=== PATIENT | female | born 1945 | race Caucasian/White ===

== ENCOUNTER 2017-02-20 11:48 | Inpatient (IN) | payer OTHER, MEDICAID ==
[~2017-02-20] VITALS: Ht 149.9 cm; Wt 51.7 kg
[2017-02-20 11:55] VITALS: BP_SYST 146
[2017-02-20] MEDS ORDERED: NACL 0.9% 1,000 ML IV ONE (12:22)
[2017-02-20] MEDS ORDERED: ONDANSETRON HCL 4 MG/2 ML VIAL IVP ONE (12:30)
[2017-02-20 12:42] LABS: BASOPHILS # (AUTO) 0.1 K/uL (0.0-0.2); BASOPHILS % (AUTO) 1.1 % (0.0-2.0); EOSINOPHILS % (AUTO) 0.1 % (0.0-4.0); HEMATOCRIT 25.4 % (36-48); HEMOGLOBIN 8.3 g/dL (12.0-16.0); LYMPHOCYTES # (AUTO) 0.4 K/uL (1.0-5.5); LYMPHOCYTES % (AUTO) 4.9 % (20.5-51.5); MEAN CORPUSCULAR HEMOGLOBIN 29 pg (27-31); MEAN CORPUSCULAR HGB CONC 33 % (32-36); MEAN CORPUSCULAR VOLUME 89 fL (79.0-98.0); MONOCYTES # (AUTO) 0.4 K/uL (0.0-1.0); MONOCYTES % (AUTO) 5.1 % (1.7-9.3); NEUTROPHILS # (AUTO) 7.8 K/uL (1.8-7.7); NEUTROPHILS % (AUTO) 88.8 % (40.0-70.0); PLATELET COUNT (AUTO) 147 K/uL (130-430); RED BLOOD CELL COUNT(AUTO) 2.85 MIL/uL (4.2-6.2); RED CELL DISTRIBUTION WIDTH 18.8 % (9.0-15.0); WHITE BLOOD COUNT (AUTO) 8.7 K/uL (4.8-10.8)
[2017-02-20 12:54] LABS: CALCIUM 9.1 mg/dL (8.4-11.0); CREATININE 1.08 mg/dL (0.55-1.30); POTASSIUM 4.3 mmol/L (3.5-5.1)
[2017-02-20 12:58] LABS: ALBUMIN 4.1 g/dL (3.4-4.8); TOTAL BILIRUBIN 2.5 mg/dL (0.0-1.0)
[2017-02-20 14:01] LABS: BILIRUBIN,URINE NEGATIVE (NEGATIVE); BLOOD, URINE 1+ (NEGATIVE); CLARITY/URINE SL HAZY (CLEAR); COLOR,URINE YELLOW (YELLOW); GLUCOSE,URINE NEGATIVE (NEGATIVE); KETONES,URINE 1+ (NEGATIVE); LEUKOCYTE ESTERASE ,URINE 1+ (NEGATIVE); NITRITE, URINE POSITIVE (NEGATIVE); PH,URINE 5.5 (5.0-8.0); PROTEIN URINE NEGATIVE (NEGATIVE); UROBILINOGEN,URINE 0.2 (0.2-1.0)
[2017-02-20 14:10] LABS: BACTERIA,URINE MANY /HPF (None Seen); WBC,URINE 20-50 /HPF (0-3)
[2017-02-20 14:11] LABS: MUCUS,URINE 1+ /LPF (None Seen)
[2017-02-20] MEDS ORDERED: LOSARTAN PO (15:08)
[2017-02-20] MEDS ORDERED: CLON0.5T4 PO (15:08)
[2017-02-20] MEDS ORDERED: ATEN-41 PO (15:08)
[2017-02-20] MEDS ORDERED: GLIM1TAB PO (15:08)
[2017-02-20] MEDS ORDERED: LIP10 PO (15:08)
[2017-02-20] MEDS ORDERED: LINA5TAB2 PO (15:08)
[2017-02-20] MEDS ORDERED: GLU500 PO ×2 (15:08)
[2017-02-20] MEDS ORDERED: LORazepam 2 MG/ML VIAL IVP PRN (15:15)
[2017-02-20] MEDS ORDERED: DOCUSATE SODIUM 100 MG CAPSULE PO PRN (15:15)
[2017-02-20] MEDS ORDERED: MAGNESIUM SULFATE 50 ML IV PRN (15:15)
[2017-02-20] MEDS ORDERED: ONDANSETRON HCL 4 MG/2 ML VIAL IVP PRN (15:15)
[2017-02-20] MEDS ORDERED: ZOLPIDEM TARTRATE 5 MG TABLET PO PRN (15:15)
[2017-02-20] MEDS ORDERED: MORPHINE 2 MG/ML INJ. SYRINGE IVP PRN ×2 (15:15)
[2017-02-20] MEDS ORDERED: POTASSIUM CHLORIDE 20 MEQ TAB.PRT.SR PO PRN (15:15)
[2017-02-20 15:23] VITALS: BP_SYST 111
[2017-02-20] MEDS: NACL 0.9% 1,000 ML IV SCH (16:09)
[2017-02-20] MEDS: cefTRIAXone 1 GM in D5W 50 ML IV SCH (16:10)
[2017-02-20 19:30] VITALS: BP_SYST 117
[2017-02-20] MEDS ORDERED: DEXTROSE 50% JECT 50 ML DISP.SYRIN IVP PRN (19:30)
[2017-02-20] MEDS ORDERED: HEPARIN SODIUM,PORCINE 5000 UNITS/ML VIAL SUBCUT SCH (21:00)
[2017-02-20] MEDS: INSULIN ASPART 100 UNITS/ML, 10 ML VIAL (NovoLOG) SUBCUT PRN (21:07)
[2017-02-20 23:59] VITALS: BP_SYST 118
[2017-02-21 02:12] VITALS: BP_SYST 112
[2017-02-21] MEDS: ACETAMINOPHEN 325 MG TABLET PO PRN ×3 (02:51→19:41)
[2017-02-21] MEDS: NACL 0.9% 1,000 ML IV SCH ×2 (02:58→16:13)
[2017-02-21 07:07] LABS: BASOPHILS % (AUTO) 0.2 % (0.0-2.0); EOSINOPHILS % (AUTO) 0.2 % (0.0-4.0); LYMPHOCYTES # (AUTO) 0.7 K/uL (1.0-5.5); LYMPHOCYTES % (AUTO) 12.9 % (20.5-51.5); MEAN CORPUSCULAR HEMOGLOBIN 30 pg (27-31); MEAN CORPUSCULAR HGB CONC 34 % (32-36); MEAN CORPUSCULAR VOLUME 89 fL (79.0-98.0); MONOCYTES # (AUTO) 0.3 K/uL (0.0-1.0); MONOCYTES % (AUTO) 6.6 % (1.7-9.3); NEUTROPHILS # (AUTO) 4.2 K/uL (1.8-7.7); PLATELET COUNT (AUTO) 115 K/uL (130-430); RED BLOOD CELL COUNT(AUTO) 2.33 MIL/uL (4.2-6.2); RED CELL DISTRIBUTION WIDTH 18.9 % (9.0-15.0); WHITE BLOOD COUNT (AUTO) 5.2 K/uL (4.8-10.8)
[2017-02-21 07:40] LABS: CALCIUM 8.2 mg/dL (8.4-11.0); CREATININE 0.99 mg/dL (0.55-1.30); POTASSIUM 3.6 mmol/L (3.5-5.1)
[2017-02-21 08:08] LABS: HEMATOCRIT 20.7 % (36-48)
[2017-02-21 08:11] VITALS: BP_SYST 104
[2017-02-21 09:04] LABS: INR 1.3 (0.8-1.2); PROTHROMBIN TIME 13.1 SECS (9.5-12.5)
[2017-02-21] MEDS ORDERED: LOSA25TA3 PO (09:30)
[2017-02-21] MEDS: ATORVASTATIN 10 MG TABLET PO SCH (09:32)
[2017-02-21] MEDS: ATENOLOL 25 MG TABLET(TENORMIN) PO SCH (09:32)
[2017-02-21 11:18] LABS: NEUTROPHILS % (AUTO) 80.1 % (40.0-70.0)
[2017-02-21 11:29] VITALS: BP_SYST 131
[2017-02-21] MEDS: metFORMIN HCL 500 MG TABLET PO SCH (11:34)
[2017-02-21] MEDS: INSULIN ASPART 100 UNITS/ML, 10 ML VIAL (NovoLOG) SUBCUT PRN (11:42)
[2017-02-21] MEDS: METOCLOPRAMIDE HCL 10 MG/2 ML VIAL IVP SCH ×2 (14:14→21:12)
[2017-02-21 16:06] LABS: EOSINOPHILS % (AUTO) 0.1 % (0.0-4.0); MONOCYTES # (AUTO) 0.3 K/uL (0.0-1.0); WHITE BLOOD COUNT (AUTO) 4.9 K/uL (4.8-10.8)
[2017-02-21 16:10] VITALS: BP_SYST 115
[2017-02-21 16:11] LABS: BASOPHILS % (AUTO) 0.2 % (0.0-2.0); LYMPHOCYTES # (AUTO) 0.5 K/uL (1.0-5.5); LYMPHOCYTES % (AUTO) 9.6 % (20.5-51.5); MEAN CORPUSCULAR HEMOGLOBIN 30 pg (27-31); MEAN CORPUSCULAR HGB CONC 33 % (32-36); MEAN CORPUSCULAR VOLUME 90 fL (79.0-98.0); MONOCYTES % (AUTO) 6.3 % (1.7-9.3); NEUTROPHILS % (AUTO) 83.8 % (40.0-70.0); RED BLOOD CELL COUNT(AUTO) 2.28 MIL/uL (4.2-6.2); RED CELL DISTRIBUTION WIDTH 18.6 % (9.0-15.0)
[2017-02-21] MEDS: cefTRIAXone 1 GM in D5W 50 ML IV SCH (16:12)
[2017-02-21 16:15] LABS: HEMATOCRIT 20.5 % (36-48); HEMOGLOBIN 6.8 g/dL (12.0-16.0); PLATELET COUNT (AUTO) 121 K/uL (130-430)
[2017-02-21 19:30] VITALS: BP_SYST 131
[2017-02-21 22:07] VITALS: BP_SYST 117
[2017-02-22 00:53] VITALS: BP_SYST 129
[2017-02-22 03:26] LABS: BASOPHILS # (AUTO) 0.1 K/uL (0.0-0.2); EOSINOPHILS % (AUTO) 0.2 % (0.0-4.0); HEMATOCRIT 30.3 % (36-48); HEMOGLOBIN 10.1 g/dL (12.0-16.0); LYMPHOCYTES # (AUTO) 0.7 K/uL (1.0-5.5); LYMPHOCYTES % (AUTO) 9.6 % (20.5-51.5); MEAN CORPUSCULAR HEMOGLOBIN 30 pg (27-31); MEAN CORPUSCULAR HGB CONC 33 % (32-36); MEAN CORPUSCULAR VOLUME 90 fL (79.0-98.0); MONOCYTES # (AUTO) 0.5 K/uL (0.0-1.0); MONOCYTES % (AUTO) 6.5 % (1.7-9.3); NEUTROPHILS # (AUTO) 5.8 K/uL (1.8-7.7); NEUTROPHILS % (AUTO) 81.7 % (40.0-70.0); PLATELET COUNT (AUTO) 116 K/uL (130-430); RED BLOOD CELL COUNT(AUTO) 3.36 MIL/uL (4.2-6.2); RED CELL DISTRIBUTION WIDTH 15.9 % (9.0-15.0); WHITE BLOOD COUNT (AUTO) 7.1 K/uL (4.8-10.8)
[2017-02-22 04:00] VITALS: BP_SYST 141
[2017-02-22] MEDS: METOCLOPRAMIDE HCL 10 MG/2 ML VIAL IVP SCH ×3 (05:38→22:43)
[2017-02-22] MEDS: INSULIN ASPART 100 UNITS/ML, 10 ML VIAL (NovoLOG) SUBCUT PRN ×2 (06:02→12:15)
[2017-02-22 06:37] LABS: BASOPHILS % (AUTO) 0.2 % (0.0-2.0); EOSINOPHILS % (AUTO) 0.3 % (0.0-4.0); HEMATOCRIT 30.1 % (36-48); HEMOGLOBIN 10.2 g/dL (12.0-16.0); LYMPHOCYTES # (AUTO) 0.6 K/uL (1.0-5.5); LYMPHOCYTES % (AUTO) 8.5 % (20.5-51.5); MEAN CORPUSCULAR HEMOGLOBIN 31 pg (27-31); MEAN CORPUSCULAR HGB CONC 34 % (32-36); MEAN CORPUSCULAR VOLUME 91 fL (79.0-98.0); MONOCYTES # (AUTO) 0.4 K/uL (0.0-1.0); MONOCYTES % (AUTO) 5.9 % (1.7-9.3); NEUTROPHILS # (AUTO) 6.2 K/uL (1.8-7.7); NEUTROPHILS % (AUTO) 85.1 % (40.0-70.0); PLATELET COUNT (AUTO) 114 K/uL (130-430); RED BLOOD CELL COUNT(AUTO) 3.33 MIL/uL (4.2-6.2); RED CELL DISTRIBUTION WIDTH 16.4 % (9.0-15.0); WHITE BLOOD COUNT (AUTO) 7.2 K/uL (4.8-10.8)
[2017-02-22 06:57] LABS: CALCIUM 8.4 mg/dL (8.4-11.0); CREATININE 0.84 mg/dL (0.55-1.30); POTASSIUM 3.5 mmol/L (3.5-5.1)
[2017-02-22] MEDS ORDERED: fentaNYL CITRATE/PF 100 MCG/2 ML AMP ONE (07:04)
[2017-02-22] MEDS ORDERED: MIDAZOLAM HCL 5 MG/5 ML VIAL ONE (07:05)
[2017-02-22 09:26] VITALS: BP_SYST 124
[2017-02-22] MEDS: ATORVASTATIN 10 MG TABLET PO SCH (09:43)
[2017-02-22] MEDS: ATENOLOL 25 MG TABLET(TENORMIN) PO SCH (09:44)
[2017-02-22] MEDS: ACETAMINOPHEN 325 MG TABLET PO PRN (09:45)
[2017-02-22] MEDS: PANTOPRAZOLE SODIUM 40 MG TAB PO SCH (09:48)
[2017-02-22] MEDS: NACL 0.9% 1,000 ML IV SCH ×3 (11:13→22:43)
[2017-02-22 12:00] VITALS: BP_SYST 133
[2017-02-22] MEDS ORDERED: GASTROGRAFIN 120 ML ONE (12:44)
[2017-02-22] MEDS: LEVOFLOXACIN 500 MG/D5W 100 ML IV SCH (14:36)
[2017-02-22 16:00] VITALS: BP_SYST 132
[2017-02-22] MEDS: metFORMIN HCL 500 MG TABLET PO SCH (16:43)
[2017-02-22 20:00] VITALS: BP_SYST 159
[2017-02-23 01:07] VITALS: BP_SYST 151
[2017-02-23 04:44] VITALS: BP_SYST 151
[2017-02-23] MEDS: METOCLOPRAMIDE HCL 10 MG/2 ML VIAL IVP SCH (06:19)
[2017-02-23 06:24] LABS: BASOPHILS % (AUTO) 0.4 % (0.0-2.0); EOSINOPHILS # (AUTO) 0.1 K/uL (0.0-0.4); EOSINOPHILS % (AUTO) 1.1 % (0.0-4.0); HEMATOCRIT 30.3 % (36-48); HEMOGLOBIN 10.2 g/dL (12.0-16.0); LYMPHOCYTES # (AUTO) 0.8 K/uL (1.0-5.5); LYMPHOCYTES % (AUTO) 15.8 % (20.5-51.5); MEAN CORPUSCULAR HEMOGLOBIN 31 pg (27-31); MEAN CORPUSCULAR HGB CONC 34 % (32-36); MEAN CORPUSCULAR VOLUME 90 fL (79.0-98.0); MONOCYTES # (AUTO) 0.4 K/uL (0.0-1.0); NEUTROPHILS # (AUTO) 3.5 K/uL (1.8-7.7); NEUTROPHILS % (AUTO) 73.7 % (40.0-70.0); PLATELET COUNT (AUTO) 108 K/uL (130-430); RED BLOOD CELL COUNT(AUTO) 3.35 MIL/uL (4.2-6.2); RED CELL DISTRIBUTION WIDTH 15.8 % (9.0-15.0); WHITE BLOOD COUNT (AUTO) 4.8 K/uL (4.8-10.8)
[2017-02-23 06:36] LABS: CALCIUM 8.6 mg/dL (8.4-11.0); CREATININE 0.84 mg/dL (0.55-1.30); POTASSIUM 3.3 mmol/L (3.5-5.1)
[2017-02-23 08:10] VITALS: BP_SYST 149
[2017-02-23] MEDS: PANTOPRAZOLE SODIUM 40 MG TAB PO SCH (09:16)
[2017-02-23] MEDS: ATENOLOL 25 MG TABLET(TENORMIN) PO SCH (09:16)
[2017-02-23] MEDS: ATORVASTATIN 10 MG TABLET PO SCH (09:16)
[2017-02-23] MEDS ORDERED: PRO40 PO (09:37)
[2017-02-23] MEDS ORDERED: LEVO500T20 PO (09:37)
[2017-02-23] MEDS: LEVOFLOXACIN 500 MG/D5W 100 ML IV SCH (10:02)
[2017-02-23 11:19] VITALS: BP_SYST 149
[2017-02-23] MEDS: metFORMIN HCL 500 MG TABLET PO SCH (11:37)
[2017-02-23 12:22] VITALS: BP_SYST 162
== END 2017-02-23 12:30 | disposition home or self-care (01) | DRG 809 ==
LOC: SED 11:48 → SMU 14:34
PROVIDERS: ADMIT General Practice; ATTEND General Practice
PROC: 30233N1 Transfusion of Nonautologous Red Blood Cells into Peripheral Vein, Percutaneous Approach (ICD-10-PCS; 2017-02-21)
PROC: 0DB68ZX Excision of Stomach, Via Natural or Artificial Opening Endoscopic, Diagnostic (ICD-10-PCS; principal; 2017-02-22 07:30)
DX: D59.1 Other autoimmune hemolytic anemias (principal); N39.0 Urinary tract infection, site not specified; E11.65 Type 2 diabetes mellitus with hyperglycemia; K80.20 Calculus of gallbladder without cholecystitis without obstruction; E78.5 Hyperlipidemia, unspecified; I10 Essential (primary) hypertension; B96.20 Unspecified Escherichia coli [E. coli] as the cause of diseases classified elsewhere; K29.70 Gastritis, unspecified, without bleeding; E78.00 Pure hypercholesterolemia, unspecified
CPT/HCPCS: 36415; 43239; 74245-TC; 76700-TC; 80048; 80053; 81000-TC; 82248-TC; 82962; 83010; 83605; 83615-TC; 83690-TC; 83735-TC; 84484; 85025; 85610-TC; 86886; 86900; 86901; 86920; 87040-TC; 87081; 87086; 87186-TC; 88305; 88312; 88313; 93005; 96361; 96374; 99285; J0696; J1644; J1815; J1956; J2060; J2250; J2405; J2765; J3010; J7030; J7040; J7060; P9021; Q9963

== ENCOUNTER 2017-11-26 06:41 | Inpatient (IN) | payer OTHER, MEDICAID ==
[~2017-11-26] VITALS: Ht 149.9 cm; Wt 51.7 kg
[~2017-11-26 06:41] MED LIST: ATEN-41 PO; CLON0.5T4 PO; GLIM1TAB PO; GLU500 PO; LEVO500T20 PO; LINA5TAB2 PO; LIP10 PO; LOSA25TA3 PO; PRO40 PO
[2017-11-26 06:52] VITALS: BP_SYST 133
[2017-11-26] MEDS ORDERED: NS 1000 ML IV.SOLN IV ONE (07:00)
--- NOTE | 2017-11-26 07:01 | NUR ---
Patient to ER bed 8 to gown for evaluation. Side rails up.
--- NOTE | 2017-11-26 07:20 | NUR ---
Pt presents to ER c/o dizziness, nausea, and general weakness that began Thursday afternoon. Pt reports that her 3rd [address]man Dr. Hudson Elaine recommended her to come in to have her Hemoglobin checked. Pt reports having a blood transfusion here at [facility] last February. Pt denies any pain, denies chest pain or sob. Pt AOX4, respirations even and unlabored, no signs of acute distress, speaking full sentences, ambulatory.
[2017-11-26] MEDS ORDERED: OMEG1CAP55 PO (07:24)
[2017-11-26] MEDS ORDERED: FOLI-43 PO (07:24)
[2017-11-26] MEDS ORDERED: FOLI400T4 PO (07:24)
--- NOTE | 2017-11-26 07:25 | NUR ---
Medication reconciliation completed with information provided by pt. Any prior medication reconciliation on file was reviewed and corrected.
[2017-11-26 07:27] LABS: BASOPHILS # (AUTO) 0.1 K/uL (0.0-0.2); BASOPHILS % (AUTO) 0.6 % (0.0-2.0); EOSINOPHILS % (AUTO) 0.4 % (0.0-4.0); HEMATOCRIT 24.9 % (36-48); HEMOGLOBIN 8.4 g/dL (12.0-16.0); LYMPHOCYTES # (AUTO) 0.9 K/uL (1.0-5.5); LYMPHOCYTES % (AUTO) 10.4 % (20.5-51.5); MEAN CORPUSCULAR HEMOGLOBIN 30 pg (27-31); MEAN CORPUSCULAR HGB CONC 34 % (32-36); MEAN CORPUSCULAR VOLUME 89 fL (79.0-98.0); MONOCYTES # (AUTO) 0.9 K/uL (0.0-1.0); MONOCYTES % (AUTO) 9.5 % (1.7-9.3); NEUTROPHILS # (AUTO) 7.1 K/uL (1.8-7.7); NEUTROPHILS % (AUTO) 79.1 % (40.0-70.0); PLATELET COUNT (AUTO) 161 K/uL (130-430); RED BLOOD CELL COUNT(AUTO) 2.81 MIL/uL (4.2-6.2); RED CELL DISTRIBUTION WIDTH 17.5 % (9.0-15.0)
--- NOTE | 2017-11-26 07:40 | NUR ---
ER at bedside examining patient.
[2017-11-26 07:43] LABS: INR 1.1 (0.8-1.2); PROTHROMBIN TIME 11.1 SECS (9.5-12.5)
[2017-11-26 07:50] LABS: CALCIUM 8.4 mg/dL (8.4-11.0); CREATININE 1.33 mg/dL (0.55-1.30); POTASSIUM 4.1 mmol/L (3.5-5.1)
[2017-11-26 07:53] LABS: ALBUMIN 3.8 g/dL (3.4-4.8); TOTAL BILIRUBIN 1.8 mg/dL (0.0-1.0)
[2017-11-26 08:28] LABS: BILIRUBIN,URINE NEGATIVE (NEGATIVE); CLARITY/URINE HAZY (CLEAR); COLOR,URINE YELLOW (YELLOW); GLUCOSE,URINE NEGATIVE (NEGATIVE); KETONES,URINE NEGATIVE (NEGATIVE); LEUKOCYTE ESTERASE ,URINE 2+ (NEGATIVE); NITRITE, URINE POSITIVE (NEGATIVE); PROTEIN URINE NEGATIVE (NEGATIVE); UROBILINOGEN,URINE 0.2 (0.2-1.0)
[2017-11-26 08:32] LABS: BLOOD, URINE TRACE (NEGATIVE)
[2017-11-26] MEDS ORDERED: cefTRIAXone 1 GM IVPB PREMIX 50 ML IV ONE (08:45)
--- NOTE | 2017-11-26 08:45 | NUR ---
Dr. Fuentes at bedside speaking with pt discussing lab and diagnostic results.
[2017-11-26 08:59] LABS: BACTERIA,URINE MODERATE /HPF (None Seen); WBC,URINE 20-50 /HPF (0-3)
[2017-11-26 09:00] LABS: MUCUS,URINE None Seen /LPF (None Seen); YEAST,URINE None Seen /HPF (None Seen)
[2017-11-26] MEDS ORDERED: ONDANSETRON HCL 4 MG/2 ML VIAL IVP PRN (09:00)
[2017-11-26] MEDS ORDERED: TEMAZEPAM 15 MG CAPSULE PO PRN (09:00)
[2017-11-26] MEDS ORDERED: METOCLOPRAMIDE HCL 10 MG/2 ML VIAL IVP PRN (09:00)
--- NOTE | 2017-11-26 09:10 | NUR ---
Patient will be admitted to care of Dr. Hastings. Admitted to medsurg unit. Will go to room 134. Belongings list completed. Summary report printed. Report will be given at bedside.
--- NOTE | 2017-11-26 09:28 | NUR ---
ADMISSION: The patient, JOSE MANUEL LIU, 72 y/o, F admitted by BARBIE NASH MD, was given written information regarding hospital policies, unit procedures and contact persons.
[2017-11-26 09:32] VITALS: BP_SYST 128
--- NOTE | 2017-11-26 10:35 | NUR ---
Opening Note patient resting in bed, awake and alert, no complaints of pain, breathing unlabored on room air, IV bolus finished, site patent, patient ambulated to restroom with steady gait, educated patient on use of call light, verbalized understanding, call light and bedside table left within reach, will continue to monitor
--- NOTE | 2017-11-26 11:30 | NUR ---
ATTENDING MD DR NASH WAS PAGED, RE: DIET ORDER. SPOKE TO ERIKA.
[2017-11-26 12:35] VITALS: BP_SYST 117
--- NOTE | 2017-11-26 12:50 | NUR ---
Patient Resting in Bed visitors at bedside, no complaints of pain, breathing unlabored on room air, IV site saline locked, she received meal tray, no other needs at this time, educated patient on use of call light for assistance, verbalized understanding, call light and bedside table left within reach, will continue to monitor
[2017-11-26 12:55] VITALS: BP_SYST 118
--- NOTE | 2017-11-26 13:10 | NUR ---
Spoke with Dr. Elaine over the phone, updated him with patient's status over the phone, stated will make rounds later today
--- NOTE | 2017-11-26 13:16 | NUR ---
CONSULTATION PAGED/CALLED Reason for Consultation: [] ANEMIA Person Who was Notified: [] CHITRA Consulting Physician: [] DR Orly MCALLISTER Mold Preparer Specialty: [] ONCO/HEMATOLOGY Ordering Physician: [] DR Osmin NASH
--- NOTE | 2017-11-26 13:49 | NUR ---
Patient off Unit at this time for head CT, visitors remain at bedside, will check on patient when she gets back
--- NOTE | 2017-11-26 14:40 | NUR ---
Patient Resting in Bed at this time, eyes closed, breathing unlabored on room air, IV site saline locked, no complaints of pain at this time, safety precautions remain in place, call light and bedside table left within reach, will continue to monitor
--- NOTE | 2017-11-26 16:30 | NUR ---
Patient Resting in Bed awake and alert, no complaints of dizziness or pain at this time, breathing unlabored and symmetrical on room air, IV site saline locked, educated patient on use of call light for assistance, verbalized understanding, bedside table and call light left within reach, will continue to monitor
[2017-11-26 16:50] VITALS: BP_SYST 123
--- NOTE | 2017-11-26 18:40 | NUR ---
Closing Note patient sitting on chair on side of bed, eating dinner with visitor, no complaints of pain, breathing unlabored on room air, IV site saline locked, no complaints of dizziness, safety precautions remain in place, bedside table and call light left within reach, will endorse to shift production associate nurse
--- NOTE | 2017-11-26 19:20 | NUR ---
OPENING NOTE Patient resting on the bed. No acute distress. Respiration even and unlabored. AAO x 4. Denied of pain. Skin warm and dry to touch. SL intact to RFA, no redness, no swelling, patent. Family at bedside. Discussed the safety issue, use call light when need help, and plan of care, verbally understanding. Safety measure maintained. Bed locked in low position, side rails up, bed alarm on. Call light within reached. Will continue to monitor.
[2017-11-26 19:45] VITALS: BP_SYST 127
--- NOTE | 2017-11-26 20:40 | NUR ---
EARPLUG PROVIDED PER PATIENT REQUESTED
--- NOTE | 2017-11-26 22:30 | NUR ---
ROUND Patient resting on the bed with eyes closed. No acute distress. Safety measure maintained. Bed locked in low position, side rails up, bed alarm on. Call light within reached. Continue to monitor.
--- NOTE | 2017-11-27 00:08 | NUR ---
ROUND Patient resting on the bed with eyes closed. No acute distress. Respiration even and unlabored. Safety measure maintained. Bed locked in low position, side rails up, bed alarm on. Call light within reached. Continue to monitor.
--- NOTE | 2017-11-27 00:15 | NUR ---
ROUND Patient resting on the bed with eyes closed. No acute distress. Safety measure maintained. Call light within reached. Bed locked in low position, side rails up, bed alarm on. Continue to monitor.
[2017-11-27 00:21] VITALS: BP_SYST 121
--- NOTE | 2017-11-27 03:56 | NUR ---
ROUND Patient resting on the bed with eyes closed. No acute distress. Respiration even and unlabored. Safety measure maintained. Call light within reached. Bed locked in low position, side rails up, bed alarm on. Continue to monitor.
--- NOTE | 2017-11-27 05:00 | NUR ---
PERSONAL HYGIENE Patient prefers to do personal hygiene self, able to do independent.
--- NOTE | 2017-11-27 06:50 | NUR ---
CLOSING NOTE Patient resting on the bed. No acute distress. Respiration even and unlabored. Denied of pain. Skin warm and dry to touch. SL intact to RFA, no redness, no swelling, patent. All needs met. Safety measure maintained. Bed locked in low position, side rails up, bed alarm on. Call light within reached. Will endorse to morning shift nurse.
--- NOTE | 2017-11-27 07:30 | NUR ---
Initial Note Received report from the night nurse ABEL. Pt AOX4. No sign of distress noted at this time. Bed is at lowest position with bed alarm on. Call light within reach
[2017-11-27 07:46] LABS: TOTAL IRON BIND. CAPACITY 159 ug/dL (250-450)
[2017-11-27 07:50] VITALS: BP_SYST 135
[2017-11-27 07:59] LABS: THYROID STIMULATING HORMONE 0.49 uIu/mL (0.36-3.74)
--- NOTE | 2017-11-27 08:04 | NUR ---
PAGED PAGED MEETA ELIAS AT [phone] SPOKE WITH MILI.
--- NOTE | 2017-11-27 09:35 | NUR ---
RN Rounds Pt awake and does not show any sign of distress noted at this time. Bed is at lowest position with bed alarm on. Call light within reach
[2017-11-27] MEDS ORDERED: DEXTROSE 50% JECT 50 ML DISP.SYRIN IVP PRN (10:45)
[2017-11-27] MEDS ORDERED: ATENOLOL 25 MG TABLET(TENORMIN) PO ONE (10:45)
[2017-11-27] MEDS: INSULIN REGULAR, HUMAN 100 UNITS/ML, 10 ML VIAL (novoLIN R) SUBCUT PRN ×2 (11:23→17:17)
[2017-11-27] MEDS ORDERED: ATENOLOL 25 MG TABLET(TENORMIN) ONE (11:34)
[2017-11-27 12:00] VITALS: BP_SYST 127
--- NOTE | 2017-11-27 12:35 | NUR ---
RN Rounds Pt resting and does not show any sign of distress noted at this time. Bed is at lowest position with bed alarm on. Call light within reach
[2017-11-27 16:00] VITALS: BP_SYST 128
--- NOTE | 2017-11-27 16:15 | NUR ---
RN Rounds Pt resting and does not show any sign of distress at this time. Bed is at lowest position with bed alarm on. Call light within reach.
--- NOTE | 2017-11-27 18:10 | NUR ---
Closing Note Pt AOX4. No sign of distress noted at this time. Bed is at lowest position with bed alarm on. Call light within reach. Pt is not happy. As per the pt, Dr. Ferrer did not have enough time to answer all her questions. She is now waiting on Dr. Emery to answer all her questions.
[2017-11-27 19:00] VITALS: BP_SYST 151
--- NOTE | 2017-11-27 19:10 | NUR ---
change of shift.pt.presents general status stable.respiratory status stable@room air. no c/o pain/nausea.pt.is ambulatory.iv access;lock.call light/telephone placed w/in the pt's reach.
--- NOTE | 2017-11-27 19:55 | NUR ---
pt.assessed.v's assessed.values w/in normal limits.no c/o pain,nausea.i have apprised pt.that snacks are available w/in the shift.no requests@this hour.general status stable.respiratory status stable. call light/telephone w/in the pt's reach.
[2017-11-27 20:00] VITALS: BP_SYST 151
--- NOTE | 2017-11-27 20:15 | NUR ---
noted that is w/ the pt.@this hour.
--- NOTE | 2017-11-27 20:35 | NUR ---
is w/ the pt.
[2017-11-27] MEDS: ATORVASTATIN 10 MG TABLET PO SCH (21:00)
--- NOTE | 2017-11-27 21:00 | NUR ---
2100p medication;lipitor has been administered.pt.has requested a snack;milk,nathalie crackers.i have provided the snacks.
--- NOTE | 2017-11-27 21:45 | NUR ---
pt.'s dtr is present.dtr. has inquired of the pt's lab values;hbg/creatinine.i have apprised the dtr that had assessed the pt.w/in the last hour.dtr had inquired if labs are ordered for 11/28/17.i have apprised the dtr that i have reviewed the 24hrs orders:and recalled no labs for:11/29/27.i reviewed the order hx; x2 no labs were order and i apprised the dtr.dtr requested if labs;cbc/cmp could be ordered:11/28/17. has been paged;re;orders;labs per the pt's dtr.
--- NOTE | 2017-11-27 21:45 | NUR ---
PAGE CALLED FOR DR. NASH. SPOKE TO ROBERTO, DIALED [phone].
[2017-11-27] MEDS: clonazePAM 0.5 MG TABLET PO PRN (22:16)
--- NOTE | 2017-11-27 22:16 | NUR ---
has been paged 2nd attempt.i have apprised the dtr.of the 2nd attempt to reach re; possible lab orders:11/28/17.
--- NOTE | 2017-11-27 22:16 | NUR ---
2ND PAGE CALLED FOR DR. NASH. SPOKE TO DR. NASH, DIALED [phone].
--- NOTE | 2017-11-27 22:20 | NUR ---
pt.had requested klonipin:0.5mg po.i have administered the medication.
--- NOTE | 2017-11-27 22:30 | NUR ---
return the page.i apprised of the pt's dtr requests for labs;. i apprised that has been present and assessed the pt.@approximately: 1999p-2029p.but did not order labs.; did not provide orders.i apprised th pt's dtr. that did not provide lab orders:11/28/17.
--- NOTE | 2017-11-28 00:30 | NUR ---
pt.assessed.v/s assessed;value w/in normal limits.i have assessed the blood glucose;value;190mg/dl. no c/o pain,nausea.no requests for snacks.call light/telephone w/in the pt's reach.
[2017-11-28] MEDS: INSULIN REGULAR, HUMAN 100 UNITS/ML, 10 ML VIAL (novoLIN R) SUBCUT PRN ×2 (00:33→12:26)
--- NOTE | 2017-11-28 00:35 | NUR ---
i have administered 2-units;regular insulin pr the sliding scale parameters. no further requests@this hour.
[2017-11-28 01:00] VITALS: BP_SYST 122
--- NOTE | 2017-11-28 01:53 | NUR ---
pt.assessed.pt.presents quiescent affect;calm,somnolent.general status stable.respiratory status stable. pt.capable to reposition self.call,light/telephone w/in the pt. reach.
--- NOTE | 2017-11-28 04:22 | NUR ---
pt.assessed.pt.presents quiescent affect;calm,somnolent.general status stable.respiratory status stable. pt.capable to reposition self.call light/telephone w/in the pt's reach.
--- NOTE | 2017-11-28 06:25 | NUR ---
pt.assessed.i have assessed the blood glucose.value;118mg/dl.pt.had requested towels/gown to shower i have provided the items.no requests for pain,nausea,nor snacks.call light/telephone w/in the pt's reach.
[2017-11-28 08:00] VITALS: BP_SYST 133
--- NOTE | 2017-11-28 08:00 | NUR ---
PATIENT A/OX4, NO SIGNS OF APPARENT DISTRESS NOTED. IV ON THE RIGHT FA, #20, SL. POC IS EXPLAINED. CALL LIGHT IN PLACE, BED LOCKED AT THE LOWEST POSITION, WILL CONTINUE TO MONITOR.
[2017-11-28] MEDS: FOLIC ACID 1 MG TABLET PO SCH (09:06)
[2017-11-28] MEDS: LOSARTAN POTASSIUM 25 MG TABLET PO SCH (09:07)
[2017-11-28] MEDS: ATENOLOL 25 MG TABLET(TENORMIN) PO SCH (09:08)
--- NOTE | 2017-11-28 10:15 | NUR ---
Dr. Redd is called as no CBC and BMP is ordered. He was able to be reached, and new orders were given.
[2017-11-28 10:51] LABS: CALCIUM 8.7 mg/dL (8.4-11.0); CREATININE 0.94 mg/dL (0.55-1.30); POTASSIUM 4.1 mmol/L (3.5-5.1)
[2017-11-28 11:03] LABS: BASOPHILS % (AUTO) 0.5 % (0.0-2.0); EOSINOPHILS # (AUTO) 0.1 K/uL (0.0-0.4); EOSINOPHILS % (AUTO) 1.3 % (0.0-4.0); HEMATOCRIT 22.6 % (36-48); HEMOGLOBIN 7.7 g/dL (12.0-16.0); LYMPHOCYTES % (AUTO) 19.7 % (20.5-51.5); MEAN CORPUSCULAR HEMOGLOBIN 30 pg (27-31); MEAN CORPUSCULAR HGB CONC 34 % (32-36); MEAN CORPUSCULAR VOLUME 88 fL (79.0-98.0); MONOCYTES # (AUTO) 0.4 K/uL (0.0-1.0); NEUTROPHILS # (AUTO) 3.6 K/uL (1.8-7.7); NEUTROPHILS % (AUTO) 71.5 % (40.0-70.0); PLATELET COUNT (AUTO) 157 K/uL (130-430); RED BLOOD CELL COUNT(AUTO) 2.56 MIL/uL (4.2-6.2); WHITE BLOOD COUNT (AUTO) 5.1 K/uL (4.8-10.8)
--- NOTE | 2017-11-28 11:39 | NUR ---
blood sugar 208. insulin will be given per sliding scale
[2017-11-28 12:00] VITALS: BP_SYST 122
[2017-11-28 12:07] LABS: FOLATE (FOLIC ACID) >20.0 ng/mL (>3.0)
[2017-11-28] MEDS: GLIMEPIRIDE 2 MG TABLET PO SCH (12:25)
[2017-11-28] MEDS ORDERED: LEVOFLOXACIN 500 MG TABLET PO ONE (13:45)
[2017-11-28] MEDS ORDERED: cefTRIAXone 1 GM in D5W 50 ML IV ONE (14:00)
--- NOTE | 2017-11-28 14:10 | NUR ---
patient is seen ambulating in the room.
[2017-11-28 16:00] VITALS: BP_SYST 129
--- NOTE | 2017-11-28 16:20 | NUR ---
Family at bedside. POC is explained, no signs of distress noted.
--- NOTE | 2017-11-28 17:30 | NUR ---
Patient blood sugar 71. No coverage needed; patient is encouraged to eat dinner to prevent blood sugar from falling further
--- NOTE | 2017-11-28 18:20 | NUR ---
Patient finishes dinner without distress.
[2017-11-28 20:45] VITALS: BP_SYST 132
--- NOTE | 2017-11-28 20:45 | NUR ---
Patient awake alert sitting up in bed able to self Reposition & Turn , is ambulatory on room air 02 SAT 98 % chest movement stable also symmetrical unlabored .
[2017-11-28] MEDS: clonazePAM 0.5 MG TABLET PO PRN (21:25)
[2017-11-28] MEDS: ATORVASTATIN 10 MG TABLET PO SCH (21:25)
--- NOTE | 2017-11-28 21:50 | NUR ---
KLONOPIN 0.5 MG PO ADMINISTER PER PATIENT REQUEST FOR GENERAL ANXIETY comfort measures implemented / .
[2017-11-28 23:55] LABS: FERRITIN 514 ng/mL (15-150)
[2017-11-29 01:10] VITALS: BP_SYST 114
--- NOTE | 2017-11-29 02:26 | NUR ---
Hourly Rounding patient resting call tafoya with patient , bed to low position Respirations regular also unlabored safety measures implemented .
--- NOTE | 2017-11-29 04:50 | NUR ---
PATIENT AWAKE ALERT VERBALLY RESPONSIVE , SIPPING ON JUICE PO , NO S/SX OF LOW BLOOD SUGAR ABLE TO SELF POSITION , BED TO LOW POSITION .
[2017-11-29 06:51] LABS: BASOPHILS # (AUTO) 0.1 K/uL (0.0-0.2); BASOPHILS % (AUTO) 1.5 % (0.0-2.0); EOSINOPHILS # (AUTO) 0.1 K/uL (0.0-0.4); EOSINOPHILS % (AUTO) 1.4 % (0.0-4.0); HEMATOCRIT 22.7 % (36-48); HEMOGLOBIN 7.7 g/dL (12.0-16.0); LYMPHOCYTES # (AUTO) 0.9 K/uL (1.0-5.5); LYMPHOCYTES % (AUTO) 21.7 % (20.5-51.5); MEAN CORPUSCULAR HEMOGLOBIN 30 pg (27-31); MEAN CORPUSCULAR HGB CONC 34 % (32-36); MEAN CORPUSCULAR VOLUME 88 fL (79.0-98.0); MONOCYTES # (AUTO) 0.3 K/uL (0.0-1.0); MONOCYTES % (AUTO) 7.2 % (1.7-9.3); NEUTROPHILS # (AUTO) 2.9 K/uL (1.8-7.7); NEUTROPHILS % (AUTO) 68.2 % (40.0-70.0); PLATELET COUNT (AUTO) 160 K/uL (130-430); RED BLOOD CELL COUNT(AUTO) 2.59 MIL/uL (4.2-6.2); WHITE BLOOD COUNT (AUTO) 4.3 K/uL (4.8-10.8)
[2017-11-29 07:12] LABS: CALCIUM 8.9 mg/dL (8.4-11.0); CREATININE 1.01 mg/dL (0.55-1.30); POTASSIUM 4.2 mmol/L (3.5-5.1)
[2017-11-29 07:19] LABS: ALBUMIN 3.4 g/dL (3.4-4.8); TOTAL BILIRUBIN 1.1 mg/dL (0.0-1.0)
[2017-11-29 08:00] VITALS: BP_SYST 125
--- NOTE | 2017-11-29 08:00 | NUR ---
Opening Note received report from industrial education teacher RN, pt resting in bed, A&Ox4, respirations even and unlabored on room air, pt denies any pain or shortness of breath, IV site clean, dry, and intact, pt educated on use of call light and asked to call for assistance, pt verbalized understanding, call light in reach, bed in low position, bed alarm on, fall and aspiration precautions in place.
[2017-11-29] MEDS: ATENOLOL 25 MG TABLET(TENORMIN) PO SCH (08:59)
[2017-11-29] MEDS: LOSARTAN POTASSIUM 25 MG TABLET PO SCH (08:59)
[2017-11-29] MEDS: FOLIC ACID 1 MG TABLET PO SCH (08:59)
--- NOTE | 2017-11-29 09:02 | NUR ---
Medication/Called Pharmacy pt educated on all medication uses and side effects, pt verbalized understanding, tolerated medication administration well, called pharmacy to send pts rocephin, fall and aspiration precautions in place.
[2017-11-29] MEDS: cefTRIAXone 1 GM in D5W 50 ML IV SCH (09:16)
--- NOTE | 2017-11-29 09:23 | NUR ---
Medication pt educated on medication use and side effects, pt tolerating medication administration well, no redness or swelling noted at IV site, fall and aspiration precautions in place.
[2017-11-29] MEDS: GLIMEPIRIDE 2 MG TABLET PO SCH (11:40)
--- NOTE | 2017-11-29 11:41 | NUR ---
Medication pt educated on medication use and side effects, pt verbalized understanding, tolerated medication administration well, no additional needs at this time.
[2017-11-29 12:11] LABS: RETICULOCYTE COUNT 6.2 % (0.5-1.5)
[2017-11-29] MEDS: INSULIN REGULAR, HUMAN 100 UNITS/ML, 10 ML VIAL (novoLIN R) SUBCUT PRN ×2 (12:15→17:33)
--- NOTE | 2017-11-29 12:22 | NUR ---
Pt refused insulin blood glucose 185, pt educated on use of insulin, pt refusing insulin at this time.
[2017-11-29 12:55] VITALS: BP_SYST 117
--- NOTE | 2017-11-29 14:05 | NUR ---
MD Rounds Dr. Redd at bedside speaking with ptMD aware of pts Hgb 7.7 and Hct 22.7.
--- NOTE | 2017-11-29 15:15 | NUR ---
RN Rounds pt resting in bed, no pain at this time, no acute distress noted, fall and aspiration precautions in place.
[2017-11-29 16:55] VITALS: BP_SYST 122
--- NOTE | 2017-11-29 17:35 | NUR ---
Medication pt educated on use and side effects of insulin, pt verbalized understanding, pt tolerated medication administration well, no additional needs at this time, fall and aspiration precautions in place.
--- NOTE | 2017-11-29 19:10 | NUR ---
Closing Note pt sitting in beside chair, family at bedside, A&Ox4, respirations even and unlabored on room air, denies any pain at this time, IV site clean, dry, and intact, pt educated on use of call light and asked to call for assistance, pt verbalized understanding, call light in reach, fall and aspiration precautions in place, care endorsed to drying machine operator RN.
[2017-11-29 19:56] VITALS: BP_SYST 101
--- NOTE | 2017-11-29 19:58 | NUR ---
INITIAL NOTE AT INITIAL ASSESSMENT, PATIENT IS SITTING UPRIGHT IN A CHAIR AT BEDSIDE EATING, STABLE, NO SIGNS OF RESPIRATORY DISTRESS. FAMILY IS ALSO AT BEDSIDE. PATIENT VERBALIZES NO PAIN. PLAN OF CARE FOR THE EVENING IS COMMUNICATED WITH THE PATIENT AND FAMILY. CALL LIGHT- TEACH BACK IS SUCCESSFUL. BED IS LOCKED, ALARMED, AND AT THE LOWEST LEVEL.
[2017-11-29] MEDS: ATORVASTATIN 10 MG TABLET PO SCH (21:24)
--- NOTE | 2017-11-29 21:54 | NUR ---
NOTE PATIENT IS RESTING IN BED, STABLE, NO SIGNS OF RESPIRATORY DISTRESS. CALL LIGHT WITHIN REACH. BED IS LOCKED, ALARMED, AND AT THE LOWEST LEVEL.
--- NOTE | 2017-11-29 23:51 | NUR ---
NOTE PATIENT IS SLEEPING, STABLE, NO SIGNS OF RESPIRATORY DISTRESS. CALL LIGHT WITHIN REACH. BED IS LOCKED, ALARMED, AND AT THE LOWEST LEVEL.
[2017-11-30] VITALS: BP_SYST 116
--- NOTE | 2017-11-30 01:01 | NUR ---
NOTE PATIENT IS RESTING IN BED, STABLE, NO SIGNS OF RESPIRATORY DISTRESS. BLOOD SUGAR AT THIS TIME IS 229, 4 UNITS OF INSULIN COVERAGE IS GIVEN AT THIS TIME PER SSI ORDERED. CALL LIGHT WITHIN REACH. BED IS LOCKED, ALARMED, AND AT THE LOWEST LEVEL.
[2017-11-30] MEDS: INSULIN REGULAR, HUMAN 100 UNITS/ML, 10 ML VIAL (novoLIN R) SUBCUT PRN ×2 (01:14→11:48)
--- NOTE | 2017-11-30 02:58 | NUR ---
NOTE PATIENT IS SLEEPING, STABLE, NO SIGNS OF RESPIRATORY DISTRESS. CALL LIGHT WITHIN REACH. BED IS LOCKED, ALARMED, AND AT THE LOWEST LEVEL.
--- NOTE | 2017-11-30 04:51 | NUR ---
NOTE PATIENT IS SLEEPING, STABLE, NO SIGNS OF RESPIRATORY DISTRESS. CALL LIGHT WITHIN REACH. BED IS LOCKED, ALARMED, AND AT THE LOWEST LEVEL.
--- NOTE | 2017-11-30 06:36 | NUR ---
CLOSING NOTE PATIENT IS RESTING IN BED, STABLE, NO SIGNS OF RESPIRATORY DISTRESS. PATIENT'S BLOOD SUGAR AT THIS TIME IS 102, NO INSULIN COVERAGE IS NECESSARY AT THIS TIME PER SSI ORDERED. CALL LIGHT IS WITHIN REACH. BED IS LOCKED, ALARMED, AND AT THE LOWEST LEVEL. WILL CONTINUE TO MONITOR UNTIL SHIFT REPORT IS GIVEN AT BEDSIDE TO AM NURSE.
[2017-11-30 07:00] LABS: BASOPHILS % (AUTO) 0.2 % (0.0-2.0); EOSINOPHILS # (AUTO) 0.1 K/uL (0.0-0.4); EOSINOPHILS % (AUTO) 1.4 % (0.0-4.0); HEMATOCRIT 22.4 % (36-48); HEMOGLOBIN 7.6 g/dL (12.0-16.0); LYMPHOCYTES # (AUTO) 1.2 K/uL (1.0-5.5); LYMPHOCYTES % (AUTO) 22.4 % (20.5-51.5); MEAN CORPUSCULAR HEMOGLOBIN 30 pg (27-31); MEAN CORPUSCULAR HGB CONC 34 % (32-36); MEAN CORPUSCULAR VOLUME 89 fL (79.0-98.0); MONOCYTES # (AUTO) 0.4 K/uL (0.0-1.0); MONOCYTES % (AUTO) 8.1 % (1.7-9.3); NEUTROPHILS # (AUTO) 3.5 K/uL (1.8-7.7); NEUTROPHILS % (AUTO) 67.9 % (40.0-70.0); PLATELET COUNT (AUTO) 164 K/uL (130-430); RED BLOOD CELL COUNT(AUTO) 2.52 MIL/uL (4.2-6.2); RED CELL DISTRIBUTION WIDTH 17.6 % (9.0-15.0); WHITE BLOOD COUNT (AUTO) 5.2 K/uL (4.8-10.8)
--- NOTE | 2017-11-30 07:35 | NUR ---
OPENING NOTE: MORNING REPORT WAS TAKEN FROM RN HEMO DIALYSIS NURSE. PATIENT IS AWAKE, ALERT AND ORIENTED X4. PATIENT IS NOT COMPLAINING OF PAIN OR SHORTNESS OF BREATH. PATIENT IS ON ROOM AIR. PATIENT IS NOT COMPLAINING OF NAUSEA OR VOMITING. PATIENT IS NOT COMPLAINING OF CONSTIPATION. PATIENT SAID SHE FEELS A LITTLE WEAK. PATIENT SAID SHE IS NOT DIZZY AT MOMENT. EDUCATED PATIENT ON IMPORTANCE OF BED ALARM AND SHE SAID IT IS OKAY TO PUT ON. EDUCATED PATIENT TO CALL IF SHE NEEDS HELP GETTING OUT OF BED BECAUSE ALARM WILL SOUND. CALL LIGHT IS IN REACH WITH BED ALARM ON. WILL CONTINUE TO MONITOR.
[2017-11-30 08:00] VITALS: BP_SYST 141
[2017-11-30] MEDS: cefTRIAXone 1 GM in D5W 50 ML IV SCH (09:46)
[2017-11-30] MEDS: FOLIC ACID 1 MG TABLET PO SCH (09:46)
[2017-11-30] MEDS: ATENOLOL 25 MG TABLET(TENORMIN) PO SCH (09:47)
[2017-11-30] MEDS: LOSARTAN POTASSIUM 25 MG TABLET PO SCH (09:48)
--- NOTE | 2017-11-30 10:20 | NUR ---
NOTE: GAVE PATIENT MORNING MEDICATION. PATIENT SWALLOWED WITH OUT DIFFICULTY. DISCONNECTED PATIENT FROM IV ANTIBIOTICS BECAUSE THEY ARE FINISHED. PATIENT HAS NO FURTHER REQUEST AT MOMENT. WILL CONTINUE TO MONITOR.
[2017-11-30 11:17] VITALS: BP_SYST 117
--- NOTE | 2017-11-30 11:44 | NUR ---
NOTE: TOOK PATIENT'S BLOOD SUGAR AND WAS 163. PATIENT REFUSED 2 UNITS OF INSULIN BECAUSE SHE SAID IT IS NORMALLY CONTROLLED AT HOME. PATIENT GETTING DISCHARGED. PATIENT SAID SISTER WILL COME GET HER. WILL CONTINUE TO MONITOR.
[2017-11-30] MEDS: GLIMEPIRIDE 2 MG TABLET PO SCH (11:47)
[2017-11-30 11:53] VITALS: BP_SYST 141
--- NOTE | 2017-11-30 11:55 | NUR ---
DC planning: Pt says she has good family support. In addition the Sr. Living apartment has group meetings regulary with ancillary community support personnel that come on-site to her Sr. Living apartment. Her family takes her grocery shopping and to MD appointments. She also uses bus transportation when needed.
--- NOTE | 2017-11-30 12:55 | NUR ---
D/C Patient Patient given medication reconciliation form and D/C instructions. Exit Care provided. Patient verbalized understanding. MD discussed with patient the results and treatment provided. Ambulatory with steady gait for discharge to home. Patient in stable condition, ID band removed. IV catheter removed, intact and dressing applied, no active bleeding. Rx of CIPRO given. All belongings sent with patient. Patient wheeled out to front by [place].
--- NOTE | 2017-12-01 15:34 | NUR ---
Discharge Follow Up Phone Call FRENCH CORD BINDER phoned patient, . Patient stated she was doing fine. She filled her prescription for Cipro and is taking her medications as directed. She has made a follow up appointment with Dr Elaine for 12/09/17. She is using her blood glucose monitor as directed in general but forgot this am. She will be more careful to use it regularly. Patient has no questions or concerns.
== END 2017-11-30 12:50 | disposition home or self-care (01) | DRG 690 ==
LOC: SED 06:41 → SMU 08:56
PROVIDERS: ADMIT Internal Medicine Hospice and Palliative Medicine; ATTEND Internal Medicine Hospice and Palliative Medicine
DX: N39.0 Urinary tract infection, site not specified (principal); D59.9 Acquired hemolytic anemia, unspecified; E11.9 Type 2 diabetes mellitus without complications; I10 Essential (primary) hypertension; E86.0 Dehydration; E78.00 Pure hypercholesterolemia, unspecified; E80.6 Other disorders of bilirubin metabolism; E78.5 Hyperlipidemia, unspecified; B96.20 Unspecified Escherichia coli [E. coli] as the cause of diseases classified elsewhere
CPT/HCPCS: 36415; 70450-TC; 71045; 80048; 80053; 81000-TC; 82150-TC; 82272; 82550-TC; 82607; 82728; 82746; 82962; 83010; 83540-TC; 83550-TC; 83605; 83615-TC; 83690-TC; 84443-TC; 84484; 85025; 85044-TC; 85610-TC; 85730-TC; 86880-TC; 87040-TC; 87086; 87186-TC; 93005; 96361; 96365; 99285; J0696; J1815; J7060

== ENCOUNTER 2018-02-05 17:47 | Inpatient (IN) | payer OTHER, MEDICAID ==
[~2018-02-05] VITALS: Ht 149.9 cm; Wt 51.7 kg
[~2018-02-05 17:47] MED LIST changes: +CLON0.5T12 PO; -CLON0.5T4 PO; +FOLI-43 PO; +FOLI400T4 PO; -LEVO500T20 PO; +OMEG1CAP55 PO; -PRO40 PO
[2018-02-05 18:00] VITALS: BP_SYST 156
[2018-02-05] MEDS ORDERED: METOCLOPRAMIDE HCL 10 MG/2 ML VIAL IVP ONE (18:30)
[2018-02-05] MEDS ORDERED: MECLIZINE HCL 25 MG TABLET (ANITVERT) PO ONE (18:30)
[2018-02-05 18:32] LABS: BILIRUBIN,URINE NEGATIVE (NEGATIVE); BLOOD, URINE NEGATIVE (NEGATIVE); CLARITY/URINE CLEAR (CLEAR); COLOR,URINE YELLOW (YELLOW); GLUCOSE,URINE NEGATIVE (NEGATIVE); KETONES,URINE NEGATIVE (NEGATIVE); LEUKOCYTE ESTERASE ,URINE TRACE (NEGATIVE); NITRITE, URINE NEGATIVE (NEGATIVE); PROTEIN URINE NEGATIVE (NEGATIVE); UROBILINOGEN,URINE 0.2 (0.2-1.0)
[2018-02-05 18:42] LABS: BACTERIA,URINE MODERATE /HPF (None Seen); RBC,URINE 0-3 /HPF (0-3)
[2018-02-05 18:59] LABS: INR 1.1 (0.8-1.2); PROTHROMBIN TIME 11.3 SECS (9.5-12.5)
[2018-02-05 19:01] LABS: BASOPHILS % (AUTO) 0.4 % (0.0-2.0); HEMATOCRIT 24.7 % (36-48); HEMOGLOBIN 7.8 g/dL (12.0-16.0); LYMPHOCYTES # (AUTO) 0.7 K/uL (1.0-5.5); LYMPHOCYTES % (AUTO) 17.7 % (20.5-51.5); MEAN CORPUSCULAR HEMOGLOBIN 28 pg (27-31); MEAN CORPUSCULAR HGB CONC 32 % (32-36); MEAN CORPUSCULAR VOLUME 89 fL (79.0-98.0); MONOCYTES # (AUTO) 0.6 K/uL (0.0-1.0); MONOCYTES % (AUTO) 13.5 % (1.7-9.3); NEUTROPHILS # (AUTO) 2.9 K/uL (1.8-7.7); NEUTROPHILS % (AUTO) 67.4 % (40.0-70.0); PLATELET COUNT (AUTO) 159 K/uL (130-430); RED BLOOD CELL COUNT(AUTO) 2.77 MIL/uL (4.2-6.2); RED CELL DISTRIBUTION WIDTH 17.9 % (9.0-15.0); WHITE BLOOD COUNT (AUTO) 4.2 K/uL (4.8-10.8)
[2018-02-05 19:06] LABS: CALCIUM 9.1 mg/dL (8.4-11.0); CREATININE 1.08 mg/dL (0.55-1.30); POTASSIUM 4.2 mmol/L (3.5-5.1)
[2018-02-05 19:11] LABS: ALBUMIN 3.8 g/dL (3.4-4.8); TOTAL BILIRUBIN 2.4 mg/dL (0.0-1.0)
[2018-02-05] MEDS ORDERED: VITD2000 PO (20:42)
[2018-02-05] MEDS ORDERED: CIPR-211 PO (20:44)
[2018-02-05] MEDS ORDERED: INSULIN REGULAR, HUMAN 100 UNITS/ML, 10 ML VIAL (novoLIN R) SUBCUT PRN (21:15)
[2018-02-05 21:17] VITALS: BP_SYST 144
[2018-02-05] MEDS ORDERED: clonazePAM 0.5 MG TABLET PO PRN (22:45)
[2018-02-05] MEDS ORDERED: ACETAMINOPHEN 325 MG TABLET PO PRN (23:00)
[2018-02-05] MEDS ORDERED: HYDROcodone/ACETAMIN 5-325 MG TAB (NORCO/ VICODIN) PO PRN (23:00)
[2018-02-05] MEDS ORDERED: ONDANSETRON HCL 4 MG/2 ML VIAL IVP PRN (23:00)
[2018-02-05] MEDS ORDERED: HYDROcodone/ACETAMIN 10-325 MG TAB PO PRN (23:00)
[2018-02-06 00:10] VITALS: BP_SYST 128
[2018-02-06] MEDS: NORMAL SALINE 5 ML DISP.SYRIN IVF SCH ×2 (07:52→13:27)
[2018-02-06 08:00] VITALS: BP_SYST 148
[2018-02-06] MEDS ORDERED: OMEGA-3/DHA/EPA/FISH OIL 1 GM CAPSULE PO SCH (09:00)
[2018-02-06] MEDS ORDERED: GLIMEPIRIDE 2 MG TABLET PO SCH (09:00)
[2018-02-06] MEDS ORDERED: FOLIC ACID 1 MG TABLET PO SCH (09:00)
[2018-02-06] MEDS ORDERED: CHOLECALCIFEROL (VITAMIN D3) 2,000 UNIT TABLET PO SCH (09:00)
[2018-02-06] MEDS ORDERED: LOSARTAN POTASSIUM 25 MG TABLET PO SCH (09:00)
[2018-02-06] MEDS ORDERED: ATORVASTATIN 10 MG TABLET PO SCH (09:00)
[2018-02-06] MEDS ORDERED: ATENOLOL 25 MG TABLET(TENORMIN) PO SCH (09:00)
[2018-02-06] MEDS ORDERED: CIPROFLOXACIN HCL 500 MG TABLET PO SCH (09:00)
[2018-02-06 09:25] VITALS: BP_SYST 156
[2018-02-06] MEDS ORDERED: clonazePAM 0.5 MG TABLET PO PRN (11:15)
[2018-02-06 11:23] LABS: CALCIUM 8.8 mg/dL (8.4-11.0); CREATININE 0.89 mg/dL (0.55-1.30); POTASSIUM 3.9 mmol/L (3.5-5.1)
[2018-02-06 11:30] LABS: ALBUMIN 3.4 g/dL (3.4-4.8); TOTAL BILIRUBIN 2.3 mg/dL (0.0-1.0)
[2018-02-06 11:34] VITALS: BP_SYST 147
[2018-02-06 11:36] LABS: BASOPHILS # (AUTO) 0.1 K/uL (0.0-0.2); BASOPHILS % (AUTO) 1.6 % (0.0-2.0); EOSINOPHILS % (AUTO) 1.1 % (0.0-4.0); HEMOGLOBIN 10.8 g/dL (12.0-16.0); LYMPHOCYTES # (AUTO) 0.8 K/uL (1.0-5.5); LYMPHOCYTES % (AUTO) 21.1 % (20.5-51.5); MEAN CORPUSCULAR HEMOGLOBIN 30 pg (27-31); MEAN CORPUSCULAR HGB CONC 34 % (32-36); MEAN CORPUSCULAR VOLUME 88 fL (79.0-98.0); MONOCYTES # (AUTO) 0.5 K/uL (0.0-1.0); MONOCYTES % (AUTO) 13.1 % (1.7-9.3); NEUTROPHILS # (AUTO) 2.3 K/uL (1.8-7.7); NEUTROPHILS % (AUTO) 63.1 % (40.0-70.0); PLATELET COUNT (AUTO) 140 K/uL (130-430); RED BLOOD CELL COUNT(AUTO) 3.63 MIL/uL (4.2-6.2); RED CELL DISTRIBUTION WIDTH 16.3 % (9.0-15.0); WHITE BLOOD COUNT (AUTO) 3.7 K/uL (4.8-10.8)
[2018-02-06] MEDS ORDERED: metFORMIN HCL 500 MG TABLET PO SCH (12:00)
[2018-02-06 15:12] VITALS: BP_SYST 135
[2018-02-06 15:30] VITALS: BP_SYST 135
== END 2018-02-06 15:53 | disposition home or self-care (01) | DRG 809 ==
LOC: SED 17:47 → SMU 20:51
PROVIDERS: ADMIT Preventive Medicine Preventive Medicine/Occupational Environmental Medicine; ATTEND Preventive Medicine Preventive Medicine/Occupational Environmental Medicine
PROC: 30233N1 Transfusion of Nonautologous Red Blood Cells into Peripheral Vein, Percutaneous Approach (ICD-10-PCS; principal; 2018-02-06)
DX: D59.1 Other autoimmune hemolytic anemias (principal); N39.0 Urinary tract infection, site not specified; E78.5 Hyperlipidemia, unspecified; I10 Essential (primary) hypertension; E11.9 Type 2 diabetes mellitus without complications; E55.9 Vitamin D deficiency, unspecified; H55.00 Unspecified nystagmus; R27.0 Ataxia, unspecified; F32.9 Major depressive disorder, single episode, unspecified; Z79.899 Other long term (current) drug therapy; Z79.84 Long term (current) use of oral hypoglycemic drugs
CPT/HCPCS: 36415; 71045; 80053; 81000-TC; 82550-TC; 82962; 84484; 85025; 85610-TC; 85730-TC; 86886; 86900; 86901; 86920; 87086; 93005; 99285; J1815; J7050; P9021

== ENCOUNTER 2018-02-15 07:44 | Day surgery (SDC) | payer OTHER, MEDICAID ==
[~2018-02-15] VITALS: Ht 149.9 cm; Wt 52.2 kg
[~2018-02-15 07:44] MED LIST changes: +CIPR-211 PO; -FOLI400T4 PO; +VITD2000 PO
[2018-02-15] MEDS ORDERED: MIDAZOLAM HCL 5 MG/5 ML VIAL ONE (09:41)
[2018-02-15] MEDS ORDERED: MEPERIDINE HCL/PF 100 MG/ML AMP ONE (09:41)
[2018-02-15] MEDS ORDERED: SIMETHICONE 40 MG/0.6 ML ML ONE (09:41)
[2018-02-15 11:36] VITALS: BP_SYST 107
== END 2018-02-15 12:10 | disposition home or self-care (01) ==
LOC: SDS 07:44
PROVIDERS: ATTEND Colon & Rectal Surgery
DX: Z12.11 Encounter for screening for malignant neoplasm of colon (principal); K63.5 Polyp of colon; K64.8 Other hemorrhoids; F41.9 Anxiety disorder, unspecified; I35.9 Nonrheumatic aortic valve disorder, unspecified; D58.9 Hereditary hemolytic anemia, unspecified; E11.22 Type 2 diabetes mellitus with diabetic chronic kidney disease; I12.9 Hypertensive chronic kidney disease with stage 1 through stage 4 chronic kidney disease, or unspecified chronic kidney disease; N18.2 Chronic kidney disease, stage 2 (mild); E78.5 Hyperlipidemia, unspecified; K21.0 Gastro-esophageal reflux disease with esophagitis; Z98.49 Cataract extraction status, unspecified eye; Z98.890 Other specified postprocedural states; Z86.010 Personal history of colon polyps; Z82.49 Family history of ischemic heart disease and other diseases of the circulatory system; Z83.3 Family history of diabetes mellitus; Z79.82 Long term (current) use of aspirin; Z79.899 Other long term (current) drug therapy; Z79.84 Long term (current) use of oral hypoglycemic drugs
CPT/HCPCS: 45380; 88305; J2175; J2250

== ENCOUNTER 2021-08-08 07:04 | Inpatient (IN) | payer OTHER, MEDICAID ==
[~2021-08-08] VITALS: Ht 149.9 cm; Wt 54.9 kg
[2021-08-08 07:04] VITALS: BP_SYST 178
[~2021-08-08 07:04] MED LIST changes: -CIPR-211 PO; +CIPR500T5 PO; -CLON0.5T12 PO; +CLON0.5T4 PO
[2021-08-08] MEDS ORDERED: CARV12.548 PO (07:14)
[2021-08-08] MEDS ORDERED: LIP40 PO (07:14)
[2021-08-08] MEDS ORDERED: ACETAMINOPHEN 500 MG TABLET PO ONE (07:15)
[2021-08-08] MEDS ORDERED: cefTRIAXone 1 GM IVPB PREMIX 50 ML IV ONE (07:15)
[2021-08-08] MEDS ORDERED: NS 1000 ML IV.SOLN IV ONE (07:15)
[2021-08-08] MEDS ORDERED: TELM40TA7 PO (07:16)
[2021-08-08] MEDS ORDERED: PIOG15TA8 PO (07:16)
[2021-08-08] MEDS ORDERED: ASPI-1393 PO (07:17)
[2021-08-08] MEDS ORDERED: FOLI-43 PO (07:17)
[2021-08-08] MEDS ORDERED: FISH12002 PO (07:21)
[2021-08-08] MEDS ORDERED: CALC-884 PO (07:23)
[2021-08-08] MEDS ORDERED: MAGN250T10 PO (07:24)
[2021-08-08] MEDS ORDERED: ASCO500T20 PO (07:24)
[2021-08-08] MEDS ORDERED: CRAN450T9 PO (07:25)
[2021-08-08] MEDS ORDERED: CYAN1TAB47 PO (07:27)
[2021-08-08] MEDS ORDERED: GLIP5TAB26 PO (07:28)
[2021-08-08 07:46] LABS: BASOPHILS % (AUTO) 0.2 % (0.0-2.0); EOSINOPHILS % (AUTO) 0.3 % (0.0-4.0); HEMATOCRIT 24.7 % (36-48); HEMOGLOBIN 8.2 g/dL (12.0-16.0); LYMPHOCYTES # (AUTO) 0.3 K/uL (1.0-5.5); LYMPHOCYTES % (AUTO) 4.3 % (20.5-51.5); MEAN CORPUSCULAR HEMOGLOBIN 30 pg (27-31); MEAN CORPUSCULAR HGB CONC 33 % (32-36); MEAN CORPUSCULAR VOLUME 89 fL (79.0-98.0); MONOCYTES # (AUTO) 0.5 K/uL (0.0-1.0); MONOCYTES % (AUTO) 7.5 % (1.7-9.3); NEUTROPHILS # (AUTO) 5.4 K/uL (1.8-7.7); NEUTROPHILS % (AUTO) 87.7 % (40.0-70.0); PLATELET COUNT (AUTO) 133 K/uL (130-430); RED BLOOD CELL COUNT(AUTO) 2.77 MIL/uL (4.2-6.2); RED CELL DISTRIBUTION WIDTH 18.4 % (9.0-15.0); WHITE BLOOD COUNT (AUTO) 6.2 K/uL (4.8-10.8)
[2021-08-08 07:57] LABS: ANION GAP 13 (5-15); CALCIUM 9.4 mg/dL (8.4-11.0); CHLORIDE 105 mmol/L (98-107); CREATININE 1.07 mg/dL (0.55-1.30); GLUCOSE 87 mg/dL (70-99); POTASSIUM 4.3 mmol/L (3.5-5.1); SODIUM SERUM 141 mmol/L (136-145); UREA NITROGEN, BLOOD 24 mg/dL (8-21)
[2021-08-08 08:01] LABS: INR 1.1 (0.8-1.2); PROTHROMBIN TIME 11.6 SECS (9.5-12.5)
[2021-08-08 08:04] LABS: ALANINE AMINOTRANSFERASE 32 U/L (12-78); ALBUMIN 3.8 g/dL (3.4-4.8); ASPARTATE AMINOTRANSFERASE 26 U/L (10-37); TOTAL BILIRUBIN 2.1 mg/dL (0.0-1.0)
[2021-08-08 08:27] LABS: BILIRUBIN,URINE NEGATIVE (NEGATIVE); BLOOD, URINE 1+ (NEGATIVE); COLOR,URINE YELLOW (YELLOW); GLUCOSE,URINE NEGATIVE (NEGATIVE); KETONES,URINE NEGATIVE (NEGATIVE); LEUKOCYTE ESTERASE ,URINE 2+ (NEGATIVE); NITRITE, URINE POSITIVE (NEGATIVE); PH,URINE 5.5 (5.0-8.0); PROTEIN URINE TRACE (NEGATIVE); UROBILINOGEN,URINE 0.2 (0.2-1.0)
[2021-08-08] MEDS ORDERED: ACETAMINOPHEN 500 MG TABLET ONE (08:29)
[2021-08-08 08:31] LABS: CLARITY/URINE HAZY (CLEAR)
[2021-08-08 08:49] LABS: BACTERIA,URINE MODERATE /HPF (None Seen); WBC,URINE 20-50 /HPF (0-3)
[2021-08-08] MEDS ORDERED: PIPERACILLIN/TAZO 3.375 GM in NS 50 ML IV SCH (12:00)
[2021-08-08] MEDS ORDERED: DEXTROSE 50% JECT 50 ML DISP.SYRIN IVP PRN (14:00)
[2021-08-08 14:29] VITALS: BP_SYST 142
[2021-08-08] MEDS: PIPERACILLIN/TAZO 3.375 GM in NS 50 ML IV SCH ×2 (14:55→21:02)
[2021-08-08] MEDS: NACL 0.9% 1,000 ML IV SCH (14:56)
[2021-08-08 16:00] VITALS: BP_SYST 140
[2021-08-08] MEDS ORDERED: MECLIZINE HCL 25 MG TABLET (ANITVERT) PO PRN (16:15)
[2021-08-08] MEDS: ACETAMINOPHEN 325 MG TABLET PO PRN (16:17)
[2021-08-08] MEDS: ONDANSETRON HCL 4 MG/2 ML VIAL IVP PRN ×2 (16:17→22:21)
[2021-08-08] MEDS: INSULIN REGULAR, HUMAN 100 UNITS/ML, 10 ML VIAL (humuLIN R) SUBCUT PRN (18:02)
[2021-08-08] MEDS ORDERED: TELMISARTAN 40 MG PO SCH (21:00)
[2021-08-08] MEDS: LOSARTAN POTASSIUM 50 MG TABLET (COZAAR) PO SCH (21:07)
[2021-08-08] MEDS: CARVEDILOL 12.5 MG TABLET (COREG) PO SCH (21:08)
[2021-08-08 21:26] VITALS: BP_SYST 149
[2021-08-09] VITALS: BP_SYST 128
[2021-08-09] MEDS: NACL 0.9% 1,000 ML IV SCH ×3 (02:19→13:25)
[2021-08-09] MEDS: PIPERACILLIN/TAZO 3.375 GM in NS 50 ML IV SCH ×4 (02:20→18:39)
[2021-08-09 04:20] VITALS: BP_SYST 113
[2021-08-09 08:00] VITALS: BP_SYST 147
[2021-08-09] MEDS: ASCORBIC ACID 500 MG TABLET PO SCH (08:23)
[2021-08-09] MEDS: ATORVASTATIN 20 MG TABLET PO SCH (08:23)
[2021-08-09] MEDS: glipiZIDE XL 5 MG TAB ( GLUCOTROL XL) PO SCH (08:23)
[2021-08-09] MEDS: ASPIRIN 81 MG TABLET(ECOTRIN) PO SCH (08:24)
[2021-08-09] MEDS: ACETAMINOPHEN 325 MG TABLET PO PRN ×2 (08:24→17:20)
[2021-08-09] MEDS: LOSARTAN POTASSIUM 50 MG TABLET (COZAAR) PO SCH ×2 (08:24→22:28)
[2021-08-09] MEDS: PIOGLITAZONE HCL 15 MG TABLET PO SCH (08:25)
[2021-08-09] MEDS: CARVEDILOL 12.5 MG TABLET (COREG) PO SCH ×2 (08:25→22:29)
[2021-08-09] MEDS: INSULIN REGULAR, HUMAN 100 UNITS/ML, 10 ML VIAL (humuLIN R) SUBCUT PRN (17:27)
[2021-08-09] MEDS ORDERED: VANCOMYCIN HCL 750 MG in NS 250 ML IV SCH (18:00)
[2021-08-09 19:00] VITALS: BP_SYST 126
[2021-08-09 20:00] VITALS: BP_SYST 126
[2021-08-10] MEDS: PIPERACILLIN/TAZO 3.375 GM in NS 50 ML IV SCH ×3 (00:37→12:39)
[2021-08-10 00:56] VITALS: BP_SYST 130
[2021-08-10] MEDS: INSULIN REGULAR, HUMAN 100 UNITS/ML, 10 ML VIAL (humuLIN R) SUBCUT PRN ×3 (01:14→19:51)
[2021-08-10] MEDS ORDERED: IPRATROPIUM/ALBUTEROL SULFATE 3 ML AMPUL.NEB (DUONEB) INH ONE (05:15)
[2021-08-10] MEDS: guaiFENesin 200 MG/10 ML UDC PO PRN (05:26)
[2021-08-10 07:51] LABS: BASOPHILS % (AUTO) 0.1 % (0.0-2.0); LYMPHOCYTES # (AUTO) 0.5 K/uL (1.0-5.5); LYMPHOCYTES % (AUTO) 8.5 % (20.5-51.5); MEAN CORPUSCULAR HEMOGLOBIN 30 pg (27-31); MEAN CORPUSCULAR HGB CONC 33 % (32-36); MEAN CORPUSCULAR VOLUME 91 fL (79.0-98.0); MONOCYTES # (AUTO) 0.4 K/uL (0.0-1.0); MONOCYTES % (AUTO) 6.6 % (1.7-9.3); NEUTROPHILS # (AUTO) 4.7 K/uL (1.8-7.7); NEUTROPHILS % (AUTO) 84.8 % (40.0-70.0); PLATELET COUNT (AUTO) 103 K/uL (130-430); RED BLOOD CELL COUNT(AUTO) 2.11 MIL/uL (4.2-6.2); RED CELL DISTRIBUTION WIDTH 18.6 % (9.0-15.0); WHITE BLOOD COUNT (AUTO) 5.6 K/uL (4.8-10.8)
[2021-08-10 08:00] VITALS: BP_SYST 135
[2021-08-10] MEDS: ASPIRIN 81 MG TABLET(ECOTRIN) PO SCH (09:00)
[2021-08-10] MEDS ORDERED: IPRATROPIUM/ALBUTEROL SULFATE 3 ML AMPUL.NEB (DUONEB) INH PRN (09:15)
[2021-08-10 09:22] LABS: HEMATOCRIT 19.2 % (36-48); HEMOGLOBIN 6.4 g/dL (12.0-16.0)
[2021-08-10] MEDS: NACL 0.9% 1,000 ML IV SCH ×2 (09:27→16:00)
[2021-08-10] MEDS: ATORVASTATIN 20 MG TABLET PO SCH (09:27)
[2021-08-10] MEDS: CARVEDILOL 12.5 MG TABLET (COREG) PO SCH ×2 (09:28→20:28)
[2021-08-10] MEDS: ASCORBIC ACID 500 MG TABLET PO SCH (09:29)
[2021-08-10] MEDS: PIOGLITAZONE HCL 15 MG TABLET PO SCH (09:29)
[2021-08-10] MEDS: LOSARTAN POTASSIUM 50 MG TABLET (COZAAR) PO SCH ×2 (09:29→20:29)
[2021-08-10] MEDS: glipiZIDE XL 5 MG TAB ( GLUCOTROL XL) PO SCH (09:30)
[2021-08-10 10:44] LABS: ALANINE AMINOTRANSFERASE 26 U/L (12-78); ALBUMIN 2.9 g/dL (3.4-4.8); ANION GAP 15 (5-15); ASPARTATE AMINOTRANSFERASE 25 U/L (10-37); CALCIUM 7.2 mg/dL (8.4-11.0); CHLORIDE 112 mmol/L (98-107); CREATININE 1.33 mg/dL (0.55-1.30); GLUCOSE 179 mg/dL (70-99); SODIUM SERUM 146 mmol/L (136-145); TOTAL BILIRUBIN 1.8 mg/dL (0.0-1.0); UREA NITROGEN, BLOOD 29 mg/dL (8-21)
[2021-08-10 11:40] VITALS: BP_SYST 121
[2021-08-10] MEDS: IPRATROPIUM/ALBUTEROL SULFATE 3 ML AMPUL.NEB (DUONEB) INH SCH ×2 (12:40→20:30)
[2021-08-10] MEDS ORDERED: OXYMETAZOLINE HCL 0.05% NASAL SPRAY NS PRN (14:30)
[2021-08-10] MEDS ORDERED: FLUTICASONE PROPIONATE 50 mCg/SPRAY 16 GM NS ONE (14:45)
[2021-08-10 15:30] VITALS: BP_SYST 108
[2021-08-10 16:00] LABS: BILIRUBIN,DIRECT 0.6 mg/dL (0.0-0.3)
[2021-08-10] MEDS: LEVOFLOXACIN 250 MG/D5W 50 ML IV SCH (17:20)
[2021-08-10 20:00] VITALS: BP_SYST 143
[2021-08-11] VITALS (7 sets, daily range): BP systolic 118–176
[2021-08-11 00:49] LABS: BILIRUBIN,URINE NEGATIVE (NEGATIVE); BLOOD, URINE NEGATIVE (NEGATIVE); COLOR,URINE YELLOW (YELLOW); GLUCOSE,URINE NEGATIVE (NEGATIVE); KETONES,URINE TRACE (NEGATIVE); LEUKOCYTE ESTERASE ,URINE NEGATIVE (NEGATIVE); NITRITE, URINE NEGATIVE (NEGATIVE); PROTEIN URINE TRACE (NEGATIVE); UROBILINOGEN,URINE 0.2 (0.2-1.0)
[2021-08-11 00:54] LABS: CLARITY/URINE SLIGHTLY HAZY (CLEAR)
[2021-08-11 00:58] LABS: BACTERIA,URINE FEW /HPF (None Seen); MUCUS,URINE None Seen /LPF (None Seen); RBC,URINE NONE SEEN /HPF (0-3)
[2021-08-11] MEDS: NACL 0.9% 1,000 ML IV SCH (05:26)
[2021-08-11] MEDS: IPRATROPIUM/ALBUTEROL SULFATE 3 ML AMPUL.NEB (DUONEB) INH SCH ×4 (05:37→19:46)
[2021-08-11] MEDS: guaiFENesin 200 MG/10 ML UDC PO PRN ×2 (06:39→12:43)
[2021-08-11 06:54] LABS: BASOPHILS % (AUTO) 0.2 % (0.0-2.0); EOSINOPHILS % (AUTO) 0.2 % (0.0-4.0); HEMATOCRIT 24.9 % (36-48); HEMOGLOBIN 8.6 g/dL (12.0-16.0); LYMPHOCYTES # (AUTO) 0.5 K/uL (1.0-5.5); LYMPHOCYTES % (AUTO) 8.7 % (20.5-51.5); MEAN CORPUSCULAR HEMOGLOBIN 30 pg (27-31); MEAN CORPUSCULAR HGB CONC 35 % (32-36); MEAN CORPUSCULAR VOLUME 87 fL (79.0-98.0); MONOCYTES # (AUTO) 0.4 K/uL (0.0-1.0); MONOCYTES % (AUTO) 6.8 % (1.7-9.3); NEUTROPHILS # (AUTO) 4.7 K/uL (1.8-7.7); NEUTROPHILS % (AUTO) 84.1 % (40.0-70.0); PLATELET COUNT (AUTO) 118 K/uL (130-430); RED BLOOD CELL COUNT(AUTO) 2.85 MIL/uL (4.2-6.2); RETICULOCYTE COUNT 3.9 % (0.5-1.5); WHITE BLOOD COUNT (AUTO) 5.6 K/uL (4.8-10.8)
[2021-08-11 07:38] LABS: ANION GAP 14 (5-15); CALCIUM 7.6 mg/dL (8.4-11.0); CHLORIDE 108 mmol/L (98-107); CREATININE 0.98 mg/dL (0.55-1.30); GLUCOSE 153 mg/dL (70-99); PHOSPHORUS 1.9 mg/dL (2.7-4.5); POTASSIUM 3.6 mmol/L (3.5-5.1); SODIUM SERUM 141 mmol/L (136-145); UREA NITROGEN, BLOOD 21 mg/dL (8-21)
[2021-08-11] MEDS: FLUTICASONE PROPIONATE 50 mCg/SPRAY 16 GM NS SCH (08:55)
[2021-08-11] MEDS: glipiZIDE XL 5 MG TAB ( GLUCOTROL XL) PO SCH (08:58)
[2021-08-11] MEDS: ASPIRIN 81 MG TABLET(ECOTRIN) PO SCH (08:59)
[2021-08-11] MEDS: PIOGLITAZONE HCL 15 MG TABLET PO SCH (08:59)
[2021-08-11] MEDS: ASCORBIC ACID 500 MG TABLET PO SCH (08:59)
[2021-08-11] MEDS: ATORVASTATIN 20 MG TABLET PO SCH (08:59)
[2021-08-11] MEDS: CARVEDILOL 12.5 MG TABLET (COREG) PO SCH ×2 (08:59→21:22)
[2021-08-11] MEDS: LOSARTAN POTASSIUM 50 MG TABLET (COZAAR) PO SCH ×2 (09:00→21:22)
[2021-08-11 09:49] LABS: ERYTHROCYTE SEDIMENTATION RATE 58 MM/HR (0-20)
[2021-08-11 10:44] LABS: TOTAL IRON BIND. CAPACITY 168 ug/dL (250-450)
[2021-08-11] MEDS: INSULIN REGULAR, HUMAN 100 UNITS/ML, 10 ML VIAL (humuLIN R) SUBCUT PRN (12:39)
[2021-08-11] MEDS ORDERED: NA PHOS 15 MM in NS 250 ML IV ONE (12:45)
[2021-08-11] MEDS: NORMAL SALINE 5 ML DISP.SYRIN IVF SCH ×2 (17:19→21:22)
[2021-08-11] MEDS: LEVOFLOXACIN 250 MG/D5W 50 ML IV SCH (17:19)
[2021-08-12] MEDS: INSULIN REGULAR, HUMAN 100 UNITS/ML, 10 ML VIAL (humuLIN R) SUBCUT PRN ×5 (00:18→23:32)
[2021-08-12 00:59] VITALS: BP_SYST 155
[2021-08-12] MEDS: IPRATROPIUM/ALBUTEROL SULFATE 3 ML AMPUL.NEB (DUONEB) INH SCH ×4 (01:10→18:00)
[2021-08-12] MEDS: guaiFENesin 200 MG/10 ML UDC PO PRN (04:26)
[2021-08-12] MEDS: NORMAL SALINE 5 ML DISP.SYRIN IVF SCH ×3 (05:02→21:19)
[2021-08-12 08:00] VITALS: BP_SYST 175
[2021-08-12 08:06] LABS: FOLATE (FOLIC ACID) >20.0 ng/mL (>3.0)
[2021-08-12 08:48] LABS: BASOPHILS % (AUTO) 0.5 % (0.0-2.0); EOSINOPHILS # (AUTO) 0.1 K/uL (0.0-0.4); EOSINOPHILS % (AUTO) 1.7 % (0.0-4.0); HEMATOCRIT 22.6 % (36-48); HEMOGLOBIN 7.5 g/dL (12.0-16.0); LYMPHOCYTES # (AUTO) 0.5 K/uL (1.0-5.5); LYMPHOCYTES % (AUTO) 13.7 % (20.5-51.5); MEAN CORPUSCULAR HEMOGLOBIN 30 pg (27-31); MEAN CORPUSCULAR HGB CONC 33 % (32-36); MEAN CORPUSCULAR VOLUME 89 fL (79.0-98.0); MONOCYTES # (AUTO) 0.4 K/uL (0.0-1.0); MONOCYTES % (AUTO) 11.1 % (1.7-9.3); NEUTROPHILS # (AUTO) 2.8 K/uL (1.8-7.7); PLATELET COUNT (AUTO) 122 K/uL (130-430); RED BLOOD CELL COUNT(AUTO) 2.54 MIL/uL (4.2-6.2); RED CELL DISTRIBUTION WIDTH 18.1 % (9.0-15.0); WHITE BLOOD COUNT (AUTO) 3.8 K/uL (4.8-10.8)
[2021-08-12] MEDS: FOLIC ACID 1 MG TABLET PO SCH (09:08)
[2021-08-12] MEDS: ATORVASTATIN 20 MG TABLET PO SCH (09:08)
[2021-08-12 09:09] LABS: ALANINE AMINOTRANSFERASE 27 U/L (12-78); ALBUMIN 2.6 g/dL (3.4-4.8); ANION GAP 11 (5-15); ASPARTATE AMINOTRANSFERASE 27 U/L (10-37); C-REACTIVE PROTEIN QUANT 5.5 mg/dL (0-0.5); CALCIUM 7.4 mg/dL (8.4-11.0); CHLORIDE 111 mmol/L (98-107); CREATININE 0.79 mg/dL (0.55-1.30); GLUCOSE 171 mg/dL (70-99); PHOSPHORUS 2.5 mg/dL (2.7-4.5); POTASSIUM 3.4 mmol/L (3.5-5.1); SODIUM SERUM 142 mmol/L (136-145); TOTAL BILIRUBIN 2.2 mg/dL (0.0-1.0); UREA NITROGEN, BLOOD 17 mg/dL (8-21)
[2021-08-12] MEDS: ASPIRIN 81 MG TABLET(ECOTRIN) PO SCH (09:09)
[2021-08-12] MEDS: glipiZIDE XL 5 MG TAB ( GLUCOTROL XL) PO SCH (09:09)
[2021-08-12] MEDS: ASCORBIC ACID 500 MG TABLET PO SCH (09:10)
[2021-08-12] MEDS: CARVEDILOL 12.5 MG TABLET (COREG) PO SCH ×2 (09:10→21:18)
[2021-08-12] MEDS: LOSARTAN POTASSIUM 50 MG TABLET (COZAAR) PO SCH ×2 (09:10→21:17)
[2021-08-12] MEDS: PIOGLITAZONE HCL 15 MG TABLET PO SCH (09:11)
[2021-08-12] MEDS: FLUTICASONE PROPIONATE 50 mCg/SPRAY 16 GM NS SCH (09:14)
[2021-08-12 10:33] LABS: ERYTHROCYTE SEDIMENTATION RATE 62 MM/HR (0-20)
[2021-08-12 12:00] VITALS: BP_SYST 156
[2021-08-12] MEDS ORDERED: methylPREDNISolone SOD SUCC/PF 62.5 MG/ML VIAL IVP ONE (14:15)
[2021-08-12 16:00] VITALS: BP_SYST 156
[2021-08-12] MEDS: LEVOFLOXACIN 250 MG/D5W 50 ML IV SCH (16:37)
[2021-08-12 20:00] VITALS: BP_SYST 177
[2021-08-12] MEDS: METHYLPREDNISOLONE SOD SUCC 40 MG/ML VIAL IVP SCH (21:19)
[2021-08-12 23:34] VITALS: BP_SYST 153
[2021-08-13 04:00] VITALS: BP_SYST 169
[2021-08-13] MEDS: IPRATROPIUM/ALBUTEROL SULFATE 3 ML AMPUL.NEB (DUONEB) INH SCH ×4 (06:00→19:42)
[2021-08-13] MEDS: NORMAL SALINE 5 ML DISP.SYRIN IVF SCH ×3 (06:15→21:02)
[2021-08-13] MEDS: METHYLPREDNISOLONE SOD SUCC 40 MG/ML VIAL IVP SCH (06:16)
[2021-08-13] MEDS: INSULIN REGULAR, HUMAN 100 UNITS/ML, 10 ML VIAL (humuLIN R) SUBCUT PRN ×4 (06:17→23:59)
[2021-08-13 06:36] LABS: ALANINE AMINOTRANSFERASE 31 U/L (12-78); ALBUMIN 2.8 g/dL (3.4-4.8); ANION GAP 10 (5-15); ASPARTATE AMINOTRANSFERASE 25 U/L (10-37); CALCIUM 7.9 mg/dL (8.4-11.0); CHLORIDE 106 mmol/L (98-107); CREATININE 0.99 mg/dL (0.55-1.30); GLUCOSE 226 mg/dL (70-99); POTASSIUM 3.4 mmol/L (3.5-5.1); SODIUM SERUM 138 mmol/L (136-145); TOTAL BILIRUBIN 1.8 mg/dL (0.0-1.0); UREA NITROGEN, BLOOD 18 mg/dL (8-21)
[2021-08-13 06:37] LABS: INR 1.2 (0.8-1.2); PROTHROMBIN TIME 12.1 SECS (9.5-12.5)
[2021-08-13] MEDS ORDERED: MEPERIDINE 100 MG INJ. 100 MG/ML VIAL ONE (06:48)
[2021-08-13] MEDS ORDERED: MIDAZOLAM HCL 5 MG/5 ML VIAL ONE (06:49)
[2021-08-13 07:07] LABS: EOSINOPHILS % (AUTO) 0.1 % (0.0-4.0); HEMATOCRIT 26.2 % (36-48); HEMOGLOBIN 8.8 g/dL (12.0-16.0); LYMPHOCYTES # (AUTO) 0.4 K/uL (1.0-5.5); LYMPHOCYTES % (AUTO) 14.2 % (20.5-51.5); MEAN CORPUSCULAR HEMOGLOBIN 29 pg (27-31); MEAN CORPUSCULAR HGB CONC 34 % (32-36); MEAN CORPUSCULAR VOLUME 87 fL (79.0-98.0); MONOCYTES # (AUTO) 0.1 K/uL (0.0-1.0); MONOCYTES % (AUTO) 1.9 % (1.7-9.3); NEUTROPHILS # (AUTO) 2.6 K/uL (1.8-7.7); NEUTROPHILS % (AUTO) 82.8 % (40.0-70.0); PLATELET COUNT (AUTO) 135 K/uL (130-430); RED BLOOD CELL COUNT(AUTO) 3.01 MIL/uL (4.2-6.2); RED CELL DISTRIBUTION WIDTH 17.3 % (9.0-15.0); WHITE BLOOD COUNT (AUTO) 3.1 K/uL (4.8-10.8)
[2021-08-13 08:00] VITALS: BP_SYST 167
[2021-08-13] MEDS: glipiZIDE XL 5 MG TAB ( GLUCOTROL XL) PO SCH (08:39)
[2021-08-13] MEDS: FOLIC ACID 1 MG TABLET PO SCH (08:39)
[2021-08-13] MEDS: ASPIRIN 81 MG TABLET(ECOTRIN) PO SCH (08:39)
[2021-08-13] MEDS: ASCORBIC ACID 500 MG TABLET PO SCH (08:39)
[2021-08-13] MEDS: PIOGLITAZONE HCL 15 MG TABLET PO SCH (08:39)
[2021-08-13] MEDS: ATORVASTATIN 20 MG TABLET PO SCH (08:39)
[2021-08-13 08:40] VITALS: BP_SYST 167
[2021-08-13] MEDS: CARVEDILOL 12.5 MG TABLET (COREG) PO SCH ×2 (08:40→20:51)
[2021-08-13] MEDS: LOSARTAN POTASSIUM 50 MG TABLET (COZAAR) PO SCH ×2 (08:40→20:52)
[2021-08-13] MEDS: FLUTICASONE PROPIONATE 50 mCg/SPRAY 16 GM NS SCH (11:38)
[2021-08-13 11:39] VITALS: BP_SYST 147
[2021-08-13] MEDS ORDERED: POTASSIUM CHLORIDE 20 MEQ TAB.PRT.SR PO ONE (11:45)
[2021-08-13] MEDS ORDERED: predniSONE 20 MG TABLET PO ONE (13:30)
[2021-08-13 15:33] VITALS: BP_SYST 145
[2021-08-13] MEDS: LEVOFLOXACIN 250 MG/D5W 50 ML IV SCH (15:54)
[2021-08-13 20:00] VITALS: BP_SYST 141
[2021-08-14 02:22] VITALS: BP_SYST 130
[2021-08-14] MEDS: NORMAL SALINE 5 ML DISP.SYRIN IVF SCH ×2 (05:50→13:06)
[2021-08-14] MEDS: INSULIN REGULAR, HUMAN 100 UNITS/ML, 10 ML VIAL (humuLIN R) SUBCUT PRN ×2 (05:53→12:29)
[2021-08-14] MEDS: IPRATROPIUM/ALBUTEROL SULFATE 3 ML AMPUL.NEB (DUONEB) INH SCH ×3 (06:00→11:31)
[2021-08-14 08:00] VITALS: BP_SYST 138
[2021-08-14] MEDS ORDERED: predniSONE 20 MG TABLET PO SCH (09:00)
[2021-08-14] MEDS: ATORVASTATIN 20 MG TABLET PO SCH (09:12)
[2021-08-14] MEDS: ASPIRIN 81 MG TABLET(ECOTRIN) PO SCH (09:12)
[2021-08-14] MEDS: CARVEDILOL 12.5 MG TABLET (COREG) PO SCH (09:12)
[2021-08-14] MEDS: glipiZIDE XL 5 MG TAB ( GLUCOTROL XL) PO SCH (09:12)
[2021-08-14] MEDS: ASCORBIC ACID 500 MG TABLET PO SCH (09:12)
[2021-08-14] MEDS: PIOGLITAZONE HCL 15 MG TABLET PO SCH (09:12)
[2021-08-14] MEDS: LOSARTAN POTASSIUM 50 MG TABLET (COZAAR) PO SCH (09:12)
[2021-08-14] MEDS: FOLIC ACID 1 MG TABLET PO SCH (09:13)
[2021-08-14] MEDS: FLUTICASONE PROPIONATE 50 mCg/SPRAY 16 GM NS SCH (09:13)
[2021-08-14] MEDS ORDERED: PRED20TA PO (11:02)
[2021-08-14] MEDS ORDERED: LEVO500T90 PO (11:02)
[2021-08-14 11:32] VITALS: BP_SYST 153
[2021-08-14 12:57] VITALS: BP_SYST 138
[2021-08-14 13:06] LABS: ATYPICAL pANCA <1:20 titer (Neg:<1:20); CYTOPLASMIC (C-ANCA) <1:20 titer (Neg:<1:20); CYTOPLASMIC (P-ANCA) <1:20 titer (Neg:<1:20)
[2021-08-15 14:33] LABS: FERRITIN 978 ng/mL (15-150)
== END 2021-08-14 15:00 | disposition home or self-care (01) | DRG 871 ==
LOC: SED 07:04 → STU 11:37 → SMU 08-12 17:50
PROVIDERS: ADMIT Internal Medicine Hospice and Palliative Medicine; ATTEND Internal Medicine Hospice and Palliative Medicine
PROC: 30233N1 Transfusion of Nonautologous Red Blood Cells into Peripheral Vein, Percutaneous Approach (ICD-10-PCS; 2021-08-10)
PROC: 0DB78ZX Excision of Stomach, Pylorus, Via Natural or Artificial Opening Endoscopic, Diagnostic (ICD-10-PCS; 2021-08-13)
PROC: 0DB68ZX Excision of Stomach, Via Natural or Artificial Opening Endoscopic, Diagnostic (ICD-10-PCS; 2021-08-13)
PROC: 0DB98ZX Excision of Duodenum, Via Natural or Artificial Opening Endoscopic, Diagnostic (ICD-10-PCS; principal; 2021-08-13 10:00)
DX: A41.89 Other specified sepsis (principal); N17.0 Acute kidney failure with tubular necrosis; E43 Unspecified severe protein-calorie malnutrition; K29.71 Gastritis, unspecified, with bleeding; N39.0 Urinary tract infection, site not specified; E87.0 Hyperosmolality and hypernatremia; Z16.24 Resistance to multiple antibiotics; D69.6 Thrombocytopenia, unspecified; E11.65 Type 2 diabetes mellitus with hyperglycemia; D64.9 Anemia, unspecified; E83.39 Other disorders of phosphorus metabolism; E83.52 Hypercalcemia; E78.00 Pure hypercholesterolemia, unspecified; I10 Essential (primary) hypertension; B34.9 Viral infection, unspecified; J32.9 Chronic sinusitis, unspecified; K31.9 Disease of stomach and duodenum, unspecified; B96.20 Unspecified Escherichia coli [E. coli] as the cause of diseases classified elsewhere; J40 Bronchitis, not specified as acute or chronic; Z20.822 Contact with and (suspected) exposure to COVID-19; E80.6 Other disorders of bilirubin metabolism; K80.20 Calculus of gallbladder without cholecystitis without obstruction; Z90.49 Acquired absence of other specified parts of digestive tract; Z98.891 History of uterine scar from previous surgery; Z87.440 Personal history of urinary (tract) infections; Z79.899 Other long term (current) drug therapy; Z79.82 Long term (current) use of aspirin; Z68.24 Body mass index [BMI] 24.0-24.9, adult
CPT/HCPCS: 0241U; 36415; 43239; 71045; 76770; 78579; 78580-TC; 80048; 80053; 81000; 82247; 82248; 82272; 82607; 82728; 82746; 82962; 83010; 83540; 83550; 83605; 83615; 83735; 84100; 84484; 85025; 85044; 85610-TC; 85651-TC; 85730-TC; 86140; 86256; 86880-TC; 86886; 86900; 86901; 86920; 87040; 87081; 87086; 88305; 88312; 88313; 93005; 94640; 94664; 94760; 96361; 96365; 99285; A9539; A9540; G0378; J0696; J1030; J1815; J1956; J2175; J2250; J2405; J2543; J2930; J7050; J7512; J8597; P9021

== ENCOUNTER 2021-09-25 09:59 | Outpatient (CLI) | payer OTHER, MEDICAID ==
[~2021-09-25 09:59] MED LIST changes: +ASCO500T20 PO; +ASPI-1393 PO; -ATEN-41 PO; +CALC-884 PO; +CARV12.548 PO; -CIPR500T5 PO; +CRAN450T9 PO; +CYAN100010 PO; +CYAN1TAB47 PO; +FISH12002 PO; -GLIM1TAB PO; +GLIP5TAB26 PO; +LEVO500T90 PO; -LINA5TAB2 PO; -LIP10 PO; +LIP40 PO; -LOSA25TA3 PO; +MAGN250T10 PO; -OMEG1CAP55 PO; +PIOG15TA8 PO; +PRED20TA PO; +TELM40TA7 PO; -VITD2000 PO; +VITD400 PO
== END 2021-09-25 18:17 | disposition home or self-care (01) ==
LOC: SCA 09:59
PROVIDERS: ATTEND Specialist
DX: I08.3 Combined rheumatic disorders of mitral, aortic and tricuspid valves (principal); I27.20 Pulmonary hypertension, unspecified; R94.31 Abnormal electrocardiogram [ECG] [EKG]; D64.9 Anemia, unspecified
CPT/HCPCS: 93306